=== PATIENT | male | born 1945 | race Caucasian/White ===

== ENCOUNTER 2020-08-15 06:33 | Day surgery (SDC) | payer OTHER ==
[2020-08-09 13:38] VITALS: BMI 25.8
--- OUTSIDE RECORDS SUMMARY | 2020-08-15 06:36 | XMS ---
:1945 Author Organization [facility] Care Team Providers Name Role Phone Devendra Balwinder Unavailable Unavailable Balwinder Ramsay Unavailable Unavailable Balwinder Ramsay Unavailable Unavailable Zain Kerr MD Unavailable Unavailable Juan Carlos Coates MD Unavailable Unavailable Re-disclosure Warning The records that you are about to access may contain information from federally- assisted alcohol or drug abuse programs. If such information is present, then the following federally mandated warning applies: This information has been disclosed to you from records protected by federal confidentiality rules (42 CFR part 2). The federal rules prohibit you from making any further disclosure of this information unless further disclosure is expressly permitted by the written consent of the person to whom it pertains or as otherwise permitted by 42 CFR part 2. A general authorization for the release of medical or other information is NOT sufficient for this purpose. The Federal rules restrict any use of the information to criminally investigate or prosecute any alcohol or drug abuse patient.The records that you are about to access may contain highly sensitive health information, the redisclosure of which is protected by Article 27-F of the [facility] Public Health law. If you continue you may haveaccess to information: Regarding HIV / AIDS; Provided by facilities licensed or operated by the [facility] Office of Mental Health; or Provided by the [facility] Office for People With Developmental Disabilities. If such information is present, then the following [facility] mandated warning applies: This information has been disclosed to you from confidential records which are protected by state law. State law prohibits you from making any further disclosure of this information without the specific written consent of the person to whom it pertains, or as otherwise permitted by law. Any unauthorized further disclosure in violation of state law may result in a fine or half-way sentence or both. A general authorization for the release of medical or other information is NOT sufficient authorization for further disclosure. Allergies and Adverse Reactions Type Description Substance Reaction Status Data Source(s ) Drug allergy No Known Allergies No Known Allergies UNKNOWN [place] [facility] Encounters Encounter Providers Location Date Indications Data Source(s ) Inpatient Attender: Balwinder 01/31/2019 RETORPERITONEAL MASS [place] ZemonAdmitter: 01:22:00 PM Hospital Balwinder Ramsay EDT - 02/02/2019 05:31:00 PM EDT RETORPERITONEAL MASS Inpatient Attender: Juan Carlos Coates 12/01/2018 08:36:00 DVT/GABRIEL SPECTED PE [place] MDAdmitter: Zain PM EST - 12/03/2018 [facility] Cirilo CARROLL 11:01:00 AM EST DVT/SUSPECTED PE Medications Medication Brand Start Product Dose Route Administrative Pharmacy [facility] Indications Reaction Description Data Name Date Form Instructions Instructions Source(s) tramadol Tramad 02/02/ TABLET 50 mg complet Every 6 [place] hydrochlori ol Hcl [address] ains de 50 MG (Ultra 12:00: needed for H ospital Oral Tablet m 50MG 00 AM For Tramadol Tab*) EDT Abdominal Hcl (Ultram 50 Mg Pain 50MG Tab*) Tab 50 Mg Tab rivaroxaban [place] 12/03/ TABLET 20 complet [place] 20 MG Oral xaban 2018 {[facility] ed [place] Tablet (Xarel 12:00: ule} Hospital [Xarelto] to 00 AM Rivaroxaban 20MG*) EST (Xarelto 20 Mg 20MG*) 20 Tablet Mg Tablet, , 20 20 Tab Oral Tab Oral rivaroxaban [place] 12/03/ TABLET 20 complet [place] 20 MG Oral xaban 2018 {[facility] ed [place] Tablet (Xarel 12:00: ule} Hospital [Xarelto] to 00 AM Rivaroxaban 20MG*) EST (Xarelto 20 Mg 20MG*) 20 Tablet Mg Tablet rivaroxaban [place] 12/03/ TABLET 15 mg complet Twi ce A Day White 15 MG Oral xaban 2018 ed [place] Tablet (Xarel 12:00: Hospital [Xarelto] to 00 AM Rivaroxaban 15MG*) EST (Xarelto 15 Mg 15MG*) 15 Tablet Mg Tablet rivaroxaban [place] 12/03/ TABLET 15 mg complet Twi ce A Day White 15 MG Oral xaban 2019 ed [place] Tablet (Xarel 12:00: Hospital [Xarelto] to 00 AM Rivaroxaban 15MG*) EST (Xarelto 15 Mg 15MG*) 15 Tablet Mg Tablet, , 15 15 Mg Oral Mg Oral Finasteride Finast TABLET 1 mg complet Daily White 1 MG Oral eride ed [place] Tablet ([facility] [Propecia] margie Finasteride 1MG (Propecia Tab*) 1MG Tab*) 1 1 Mg Mg Tablet, Tablet 1 Mg Oral , 1 Mg Oral rivaroxaban [place] TABLET 20 complet Daily White 20 MG Oral xaban {Caps ed [place] Tablet (Xarel ule} Hospital [Xarelto] to Rivaroxaban 20MG*) (Xarelto 20 Mg 20MG*) 20 Tablet Mg Tablet Finasteride Finast TABLET 5 mg complet Daily White 5 MG Oral eride ed [place] Tablet ([facility] Finasteride ar*) 5 (Proscar*) Mg Tab 5 Mg Tab Escitalopra Escita TABLET 10 mg complet Daily White m 10 MG lopram ed [place] Oral Tablet Oxalat Hospit al [Lexapro] e Escitalopra (Lexap m Oxalate ro*) (Lexapro*) 10 Mg 10 Mg Tab Tab Tamsulosin Tamsul CAPSULE 0.4 complet At Bed time White hydrochlori osin mg ed [place] de 0.4 MG Hcl Hospital Oral (Floma Capsule x [Flomax] Capsul Tamsulosin e*) Hcl (Flomax 0.4 Mg Capsule*) Cap 0.4 Mg Cap Rosuvastati Rosuva TABLET 10 mg complet Daily White n calcium statin ed [place] 10 MG [facility] Tablet m [Crestor] (Crest Rosuvastati or*) n Calcium 10 Mg (Crestor*) Tab 10 Mg Tab Escitalopra Escita TABLET 10 mg complet Daily White m 10 MG lopram ed [place] Oral Tablet Oxalat Hospit al [Lexapro] e Escitalopra (Lexap m Oxalate ro*) (Lexapro*) 10 Mg 10 Mg Tab Tab Tamsulosin Tamsul CAPSULE 0.4 complet At Bed time White hydrochlori osin mg ed [place] de 0.4 MG Hcl Hospital Oral (Floma Capsule x [Flomax] Capsul Tamsulosin e*) Hcl (Flomax 0.4 Mg Capsule*) Cap 0.4 Mg Cap Rosuvastati Rosuva TABLET 10 mg complet Daily White n calcium statin ed [place] 10 MG Oral [facility] Tablet m [Crestor] (Crest Rosuvastati or*) n Calcium 10 Mg (Crestor*) Tab 10 Mg Tab Finasteride Finast TABLET 1 mg complet Daily White 1 MG Oral eride ed [place] Tablet ([facility] [Propecia] margie Finasteride 1MG (Propecia Tab*) 1MG Tab*) 1 1 Mg Mg Tablet Tablet Insurance Providers Payer name Policy type Policy ID Covered Covered green party's Policy P jennifer / Coverage green party ID relationship to [place] [facility] [place] MEDICARE [id number] SP [id number] 21 1 [facility] [id number] SP [id number] 01 1 MEDICARE [id number] SP [id number] 21 1 BLUE CROSS [id number] PT [id number] OTHER 25 MEDICARE [id number] PT [id number] 21 1 BLUE CROSS [id number] PT [id number] OTHER 25 MEDICARE [id number] PT [id number] 21 1 Problems, Conditions, and Diagnoses Code Display Name Description Problem Type Effective Dates Data Source(s) Z79.899 Other ocean transportation intermediary Z79.899 Diagnosis 01/31/2019 [facility] (current) drug therapy 01:22:00 PM E DT Hospital Z86.711 Personal history of Z86.711 Diagnosis 01/31/2019 [place] pulmonary embolism 01:22:00 PM EDT H ospital Z86.718 Personal history of Z86.718 Diagnosis 01/31/2019 [place] other venous 01:22:00 PM EDT Hospita l thrombosis and embolism 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 Diagnosis 01/31/2019 [place] use of anticoagulants 01:22:00 PM ED T Hospital N40.0 Benign prostatic N40.0 Diagnosis 01/31/[address] [facility] hyperplasia without 01:22:00 PM EDT Hospital lower urinary tract symptoms Z53.31 Laparoscopic surgical Z53.31 Diagnosis 01/31/2019 [facility] [facility] [place] procedure converted to 01:22:00 PM E [facility] open procedure 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.0 Diagnosis 01/31/2019 [facility] [place] (postprocedural) 01:22:00 PM EDT Hos pital (postinfection) C48.0 Malignant neoplasm of C48.0 Diagnosis 01/31/2019 [facility] [place] retroperitoneum 01:22:00 PM EDT Hosp ital C85.90 Non-Hodgkin lymphoma, C85.90 Diagnosis 01/31/2019 [facility] [place] unspecified, 01:22:00 PM EDT Hospita l unspecified site H91.90 Unspecified hearing H91.90 Diagnosis 12/01/2018 [place] loss, unspecified ear 08:36:00 PM [facility] Hospital G47.00 Insomnia, unspecified G47.00 Diagnosis 12/01/2018 [facility] [place] 08:36:00 PM EST Hospital E78.5 Hyperlipidemia, E78.5 Diagnosis 12/01/2018 [facility] unspecified 08:36:00 PM EST Hospital F32.9 Major depressive F32.9 Diagnosis 12/01/[address] [facility] disorder, single 08:36:00 PM EST Hos pital episode, unspecified I26.99 Other pulmonary I26.99 Diagnosis 12/01/2018 [facility] embolism without acute 08:36:00 PM [facility] cor pulmonale I82.4Z2 Acute embolism and I82.4Z2 Diagnosis 12/01/2018 [place] thrombosis of 08:36:00 PM EST Hospit al unspecified deep veins of left distal lower extremity Surgeries/Procedures Procedure Description Date Indications Data Source(s) Laparoscopy, diagnostic Laparoscopy, diagnostic 01/31/2019 [place] 12:00:00 AM Hospital EDT Color Doppler Color Doppler 12/02/2018 [place] echocardiography echocardiography 12:00:00 AM Hospita l EST Computed tomography Computed tomography 12/01/2018 [facility] [place] angiography of chest angiography of chest 12:00:00 AM Hospital without then with without then with EST contrast contrast Portable x-ray of chest Portable x-ray of chest 12/01/2018 [place] 12:00:00 AM Hospital EST Doppler ultrasound of Doppler ultrasound of 12/01/2018 [place] vessels of both lower vessels of both lower 12:00:00 AM Hospital extremities extremities EST EKG (electrocardiogram) EKG (electrocardiogram) 12/01/2018 [place] 12:00:00 AM Hospital EST Results ID Date Data Source [id number] 08/11/2020 10:55:00 AM EDT [facility] Name Value Range Interpretation Description Data Sup porting Code Source(s) Document(s ) SARS [facility] coronavirus 2 RNA This lab was ordered by SALLY garnica [facility] and reported by [facility]. ID Date Data Source [id number] 02/02/2019 09:33:00 AM EDT [facility] Value Range Interpretation Description Data Sup porting Code Source(s) Document(s ) Aspartate 38 U/L 10-48 AST [place] aminotransferase [place] [Enzymatic Hospital activity/volume] in Serum or Plasma ID Date Data Source [id number] 02/02/2019 09:33:00 AM EDT [facility] Value Range Interpretation Description Data Sup porting Code Source(s) Document(s ) Alanine 20 U/L 10-40 ALANINE [facility] aminotransferase TRANSFERASE [place] [Enzymatic Hospital activity/volume] in Serum or Plasma ID Date Data Source [id number] 02/02/2019 09:33:00 AM EDT [facility] Value Range Interpretation Description Data Sup porting Code Source(s) Document(s ) Alkaline 87 U/L 41-147 ALKALINE [place] phosphatase PHOSPHATASE Hospital [Enzymatic activity/volum e] in Serum or Plasma ID Date Data Source [id number] 02/02/2019 09:33:00 AM EDT [facility] Value Range Interpretation Description Data Sup porting Code Source(s) Document(s ) Bilirubin. 0.6 mg/dL 0.3-1.2 TOTAL [place] total BILIRUBIN Hospital [Mass/volu me] in Serum or Plasma ID Date Data Source [id number] [facility] Value Range Interpretation Description Data Sup porting Code Source(s) Document(s ) Albumin/Gl 1.2 1.0-2.1 ALBUMIN/GLOBULI [place] obulin N RATIO Hospital [Mass Ratio] in Serum or Plasma ID Date Data Source [id number] 02/02/2019 09:33:00 AM EDT [facility] Name Value Range Interpretation Description Data Sup porting Code Source(s) Document(s ) Albumin 3.5 g/dL 3.4-4.8 ALBUMIN [place] [Mass/volum Hospital e] in Serum or Plasma ID Date Data Source [id number] 02/02/2019 09:33:00 AM [facility] Value Range Interpretation Description Data Sup porting Code Source(s) Document(s ) Protein 6.3 g/dL 5.7-8.2 TOTAL PROTEIN [place] [Mass/volum Hospital e] in Serum or Plasma ID Date Data Source [id number] 02/02/2019 09:33:00 AM [facility] Value Range Interpretation Description Data Sup porting Code Source(s) Document(s ) Calcium 8.3 mg/dL 8.3-10.6 CALCIUM [place] [Mass/volum Hospital e] in Serum or Plasma ID Date Data Source [id number] 02/02/2019 09:33:00 AM [facility] Name Value Range Interpretation Description Data Sup porting Code Source(s) Document(s ) Urea 18.9 6.0-20.0 BUN/CREATININE [place] nitrogen/C RATIO Hospital reatinine [Mass Ratio] in Serum or Plasma ID Date Data Source [id number] 02/02/2019 09:33:00 AM EDT [facility] Name Value Range Interpretation Description Data Sup porting Code Source(s) Document(s ) Creatinine 1.1 0.9-1.3 CREATININE [place] [Mass/volume] mg/dL Hospital in Serum or Plasma ID Date Data Source [id number] 02/02/2019 09:33:00 AM EDT [facility] Name Value Range Interpretation Description Data Sup porting Code Source(s) Document(s ) Urea 21 mg/dL 6-20 Above high normal BLOOD UREA [facility] nitrogen NITROGEN Hospital [Mass/volume ] in Serum or Plasma ID Date Data Source [id number] 02/02/2019 [facility] Value Range Interpretation Code Description Data Danielle rce(s) Supporting Document(s ) Anion gap in 13 6-18 ANION GAP [place] Serum or [facility] Plasma ID Date Data Source [id number] 02/02/2019 09:33:00 AM [facility] Name Value Range Interpretation Description Data Sup porting Code Source(s) Document(s ) Carbon 24 mmol/L 23-31 CARBON DIOXIDE [place] dioxide, Hospital total [Moles/vol ume] in Serum or Plasma ID Date Data Source [id number] 02/02/2019 09:33:00 AM [facility] Name Value Range Interpretation Description Data Sup porting Code Source(s) Document(s ) Chloride 107 98-107 CHLORIDE [place] [Moles/volum mmol/L Hospital e] in Serum or Plasma ID Date Data Source [id number] 02/02/2019 [facility] Value Range Interpretation Description Data Sup porting Code Source(s) Document(s ) Potassium 3.9 3.5-5.3 POTASSIUM [place] [Moles/volume mmol/L Hospital ] in Serum or Plasma ID Date Data Source [id number] 02/02/2019 09:33:00 AM EDT [facility] Name Value Range Interpretation Description Data Sup porting Code Source(s) Document(s ) Sodium 140 136-145 SODIUM [place] [Moles/vol mmol/L Hospital ume] in Serum or Plasma ID Date Data Source [id number] 02/02/2019 09:33:00 AM EDT [facility] Name Value Range Interpretation Description Data Sup porting Code Source(s) Document(s ) Glucose 114 mg/dL 74-106 Above high normal GLUCOSE [place] [Mass/volum Hospital e] in Serum or Plasma ID Date Data Source [id number] 02/02/2019 09:33:00 AM EDT [facility] Value Range Interpretation Description Data Sup porting Code Source(s) Document(s ) Differential AUTOMATED DIFF TYPE [place] cell count [facility] method - Blood ID Date Data Source [id number] 02/02/2019 09:33:00 AM EDT [facility] Value Range Interpretation Description Data Sup porting Code Source(s) Document(s ) Immature 0.03 0-0.3 IMM GRANS [place] granulocytes 10*3/uL (AUTO DIFF#) Hospital [#/volume] in Blood by Automated count ID Date Data Source [id number] 02/02/2019 09:33:00 AM EDT [facility] Name Value Range Interpretation Description Data Sup porting Code Source(s) Document(s ) Basophils 0.04 0.0-0.1 BASOPHILS [place] [#/volume] 10*3/uL (AUTO DIFF #) Hospital in Blood by Automated count ID Date Data Source [id number] 02/02/2019 09:33:00 AM EDT [facility] Name Value Range Interpretation Description Data Sup porting Code Source(s) Document(s ) Eosinophils 0.04 0.0-0.6 EOSINOPHILS [place] [#/volume] in 10*3/uL (AUTO DIFF #) [place] Blood by [facility] Automated count ID Date Data Source [id number] 02/02/2019 09:33:00 AM [facility] Value Range Interpretation Description Data Sup porting Code Source(s) Document(s ) Monocytes 0.90 0.0-1.2 MONOCYTES [place] [#/volume] 10*3/uL (AUTO DIFF #) Hospital in Blood by Automated count ID Date Data Source [id number] 02/02/2019 09:33:00 AM [facility] Value Range Interpretation Description Data Sup porting Code Source(s) Document(s ) Lymphocytes 0.88 1.2-3.5 Below low normal LYMPHOCYTES [place] [#/volume] in 10*3/uL (AUTO DIFF #) [place] Blood by [facility] Automated count ID Date Data Source [id number] 02/02/2019 09:33:00 AM [facility] Value Range Interpretation Description Data Sup porting Code Source(s) Document(s ) Neutrophils 7.94 1.5-6.6 Above high normal NEUTROPHILS [facility] [#/volume] in 10*3/uL (AUTO DIFF #) [place] Blood by [facility] Automated count ID Date Data Source [id number] 02/02/2019 09:33:00 AM [facility] Value Range Interpretation Description Data Sup porting Code Source(s) Document(s ) Nucleated 0.0 % 0-0.2 NUCLEATED RBCS [place] erythrocytes/1 (AUTO DIFF%) Hospital 00 leukocytes [Ratio] in Blood by Automated count ID Date Data Source [id number] 02/02/2019 09:33:00 AM [facility] Value Range Interpretation Description Data Sup porting Code Source(s) Document(s ) Immature 0.3 % 0-0.5 IMM GRANS (AUTO [place] granulocytes/1 DIFF%) Hospital 00 leukocytes in Blood by Automated count ID Date Data Source [id number] 02/02/2019 09:33:00 AM [facility] Name Value Range Interpretation Description Data Sup porting Code Source(s) Document(s ) Basophils/100 0.4 % 0-1.0 BASOPHILS (AUTO [facility] [facility] leukocytes in DIFF %) Hospital Blood by Automated count ID Date Data Source [id number] 02/02/2019 09:33:00 AM [facility] Name Value Range Interpretation Description Data Sup porting Code Source(s) Document(s ) Eosinophils/10 0.4 % 0-6.0 EOSINOPHILS [place] 0 leukocytes (AUTO DIFF %) Hospital in Blood by Automated count ID Date Data Source [id number] 02/02/2019 09:33:00 AM [facility] Name Value Range Interpretation Description Data Sup porting Code Source(s) Document(s ) Monocytes/100 9.2 % 4.0-12.0 MONOCYTES [place] leukocytes in (AUTO DIFF %) Hospital Blood by Automated count ID Date Data Source [id number] 02/02/2019 09:33:00 AM [facility] Name Value Range Interpretation Description Data Sup porting Code Source(s) Document(s ) Lymphocytes/10 9.0 % 20.0-48. Below low normal LYMPHOCYTES [place] 0 leukocytes 0 (AUTO DIFF %) Hospital in Blood by Automated count ID Date Data Source [id number] 02/02/2019 09:33:00 AM [facility] Name Value Range Interpretation Description Data Sup porting Code Source(s) Document(s ) Neutrophils/1 80.7 % 40.0-75. Above high normal NEUTROPHILS [place] 00 leukocytes 0 (AUTO DIFF %) Hospital in Blood by Automated count ID Date Data Source [id number] 02/02/2019 09:33:00 AM [facility] Name Value Range Interpretation Description Data Sup porting Code Source(s) Document(s ) Platelet 10.7 fL 9.6-12.8 MEAN PLATELET [place] mean volume VOLUME Hospital [Entitic volume] in Blood by Automated count ID Date Data Source [id number] 02/02/2019 09:33:00 AM [facility] Value Range Interpretation Description Data Sup porting Code Source(s) Document(s ) Platelets 201 150-400 PLATELET COUNT [place] [#/volume] 10*3/uL Hospital in Blood by Automated count ID Date Data Source [id number] 02/02/2019 09:33:00 AM [facility] Value Range Interpretation Description Data Sup porting Code Source(s) Document(s ) Erythrocyte 13.9 % 11.5-14. RED CELL [place] distribution 5 DISTRIBUTION [place] width [Ratio] WIDTH Hospital by Automated count ID Date Data Source [id number] 02/02/2019 09:33:00 AM [facility] Value Range Interpretation Description Data Sup porting Code Source(s) Document(s ) Erythrocyte mean 32.1 31.0-36. MEAN [place] corpuscular g/dL 0 CORPUSCULAR [place] hemoglobin HGB CONCEN Hospital concentration [Mass/volume] by Automated count ID Date Data Source [id number] 02/02/2019 09:33:00 AM [facility] Value Range Interpretation Description Data Sup porting Code Source(s) Document(s ) Erythrocyte 27.0 pg 27.0-34. MEAN [facility] mean 0 CORPUSCULAR [place] corpuscular HEMOGLOBIN [facility] hemoglobin [Entitic mass] by Automated count ID Date Data Source [id number] 02/02/2019 09:33:00 AM [facility] Value Range Interpretation Description Data Sup porting Code Source(s) Document(s ) Erythrocyte 84.0 fL 80.0-96. MEAN [facility] mean 0 CORPUSCULAR [place] corpuscular VOLUME Hospital volume [Entitic volume] by Automated count ID Date Data Source [id number] 02/02/2019 09:33:00 AM [facility] Name Value Range Interpretation Description Data Sup porting Code Source(s) Document(s ) Hematocrit 29.9 % 42.0-50.0 Below low normal HEMATOCRIT [place] [Volume Hospital Fraction] of Blood by Automated count ID Date Data Source [id number] 02/02/2019 09:33:00 AM [facility] Name Value Range Interpretation Description Data Sup porting Code Source(s) Document(s ) Hemoglobin 9.6 g/dL 13.6-17. Below low normal HEMOGLOBIN [place] [Mass/volume] 0 Hospital in Blood ID Date Data Source [id number] 02/02/2019 09:33:00 AM [facility] Name Value Range Interpretation Description Data Sup porting Code Source(s) Document(s ) Erythrocytes 3.56 4.50-5.9 Below low normal RED BLOOD [facility] [#/volume] in 10*6/uL 0 CELL COUNT [place] Blood by Hospital Automated count ID Date Data Source [id number] 02/02/2019 09:33:00 AM [facility] Name Value Range Interpretation Description Data Sup porting Code Source(s) Document(s ) Leukocytes 9.8 4.0-10.0 WHITE BLOOD [place] [#/volume] in 10*3/uL CELL COUNT [facility] Blood by Automated count ID Date Data Source [id number] 01/31/2019 01:27:00 PM [facility] Senior International Tax Manager: ROWENA NASH RN Name Value Range Interpretation Description Data Sup porting Code Source(s) Document(s ) Glucose 156 74-106 Above high normal METER GLUCOSE [facility] [place] [Mass/volume] mg/dL Hospital in Capillary blood by Glucometer ID Date Data Source [id number] 12/02/2018 06:56:00 AM [facility] Name Value Range Interpretation Description Data Sup porting Code Source(s) Document(s ) Calcium 8.7 mg/dL 8.3-10.6 CALCIUM [place] [Mass/volum Hospital e] in Serum or Plasma ID Date Data Source [id number] 12/02/2018 06:56:00 AM [facility] Name Value Range Interpretation Description Data Sup porting Code Source(s) Document(s ) Urea 30.3 6.0-20.0 Above high normal BUN/CREATININE [place] nitrogen/C [facility] reatinine [Mass Ratio] in Serum or Plasma ID Date Data Source [id number] 12/02/2018 06:56:00 AM [facility] Value Range Interpretation Description Data Sup porting Code Source(s) Document(s ) Creatinine 0.8 0.9-1.3 Below low normal CREATININE [place] [facility] [Mass/volume] mg/dL Hospital in Serum or Plasma ID Date Data Source [id number] 12/02/2018 06:56:00 AM [facility] Value Range Interpretation Description Data Sup porting Code Source(s) Document(s ) Urea 23 mg/dL 6-20 Above high normal BLOOD UREA [facility] s nitrogen NITROGEN Hospital [Mass/volume ] in Serum or Plasma ID Date Data Source [id number] 12/02/2018 06:56:00 AM [facility] Value Range Interpretation Code Description Data Danielle rce(s) Supporting Document(s ) Anion gap in 13 6-18 ANION GAP [place] Serum or [facility] Plasma ID Date Data Source [id number] 12/02/2018 06:56:00 AM [facility] Value Range Interpretation Description Data Sup porting Code Source(s) Document(s ) Carbon 25 mmol/L 23-31 CARBON DIOXIDE [place] dioxide, Hospital total [Moles/vol ume] in Serum or Plasma ID Date Data Source [id number] 12/02/2018 06:56:00 AM EST [place] [facility] Name Value Range Interpretation Description Data Sup porting Code Source(s) Document(s ) Chloride 105 98-107 CHLORIDE [place] [Moles/volum mmol/L Hospital e] in Serum or Plasma ID Date Data Source [id number] 12/02/2018 06:56:00 AM EST [place] [facility] Name Value Range Interpretation Description Data Sup porting Code Source(s) Document(s ) Potassium 4.0 3.5-5.3 POTASSIUM [place] [Moles/volume mmol/L Hospital ] in Serum or Plasma ID Date Data Source [id number] 12/02/2018 06:56:00 AM EST [place] [facility] Name Value Range Interpretation Description Data Sup porting Code Source(s) Document(s ) Sodium 139 136-145 SODIUM [place] [Moles/vol mmol/L Hospital ume] in Serum or Plasma ID Date Data Source [id number] 12/02/2018 06:56:00 AM EST [place] [facility] Name Value Range Interpretation Description Data Sup porting Code Source(s) Document(s ) Glucose 94 mg/dL 74-106 GLUCOSE [place] [Mass/volum Hospital e] in Serum or Plasma ID Date Data Source [id number] 12/02/2018 06:56:00 AM EST [place] [facility] Name Value Range Interpretation Code Description Data Danielle rce(s) Supporting Document(s ) 0.0 % 0-0.2 NUCLEATED RBCS [place] (AUTO DIFF%)DIS Hospital ID Date Data Source [id number] 12/02/2018 06:56:00 AM EST [place] [facility] Name Value Range Interpretation Description Data Sup porting Code Source(s) Document(s ) Differential AUTOMATED DIFF TYPE [place] cell count Hospital method - Blood ID Date Data Source [id number] 12/02/2018 06:56:00 AM [facility] Name Value Range Interpretation Description Data Sup porting Code Source(s) Document(s ) Immature 0.02 0-0.3 IMM GRANS [place] granulocytes 10*3/uL (AUTO DIFF#) Hospital [#/volume] in Blood by Automated count ID Date Data Source [id number] 12/02/2018 06:56:00 AM [facility] Name Value Range Interpretation Description Data Sup porting Code Source(s) Document(s ) Basophils 0.08 0.0-0.1 BASOPHILS [place] [#/volume] 10*3/uL (AUTO DIFF #) Hospital in Blood by Automated count ID Date Data Source [id number] 12/02/2018 06:56:00 AM [facility] Name Value Range Interpretation Description Data Sup porting Code Source(s) Document(s ) Eosinophils 0.38 0.0-0.6 EOSINOPHILS [place] [#/volume] in 10*3/uL (AUTO DIFF #) [place] Blood by [facility] Automated count ID Date Data Source [id number] 12/02/2018 06:56:00 AM [facility] Name Value Range Interpretation Description Data Sup porting Code Source(s) Document(s ) Monocytes 0.97 0.0-1.2 MONOCYTES [place] [#/volume] 10*3/uL (AUTO DIFF #) Hospital in Blood by Automated count ID Date Data Source [id number] 12/02/2018 06:56:00 AM [facility] Name Value Range Interpretation Description Data Sup porting Code Source(s) Document(s ) Lymphocytes 1.54 1.2-3.5 LYMPHOCYTES [facility] [#/volume] in 10*3/uL (AUTO DIFF #) [place] Blood by Hospital Automated count ID Date Data Source [id number] 12/02/2018 06:56:00 AM [facility] Name Value Range Interpretation Description Data Sup porting Code Source(s) Document(s ) Neutrophils 6.03 1.5-6.6 NEUTROPHILS [facility] [#/volume] in 10*3/uL (AUTO DIFF #) [place] Blood by Hospital Automated count ID Date Data Source [id number] 12/02/2018 06:56:00 AM [facility] Value Range Interpretation Description Data Sup porting Code Source(s) Document(s ) Nucleated 0.0 % 0-0.2 NUCLEATED RBCS [place] erythrocytes/1 (AUTO DIFF%) Hospital 00 leukocytes [Ratio] in Blood by Automated count ID Date Data Source [id number] 12/02/2018 06:56:00 AM [facility] Value Range Interpretation Description Data Sup porting Code Source(s) Document(s ) Immature 0.2 % 0-0.5 IMM GRANS (AUTO [place] granulocytes/1 DIFF%) [facility] 00 leukocytes in Blood by Automated count ID Date Data Source [id number] 12/02/2018 06:56:00 AM [facility] Value Range Interpretation Description Data Sup porting Code Source(s) Document(s ) Basophils/100 0.9 % 0-1.0 BASOPHILS (AUTO [place] leukocytes in DIFF %) Hospital Blood by Automated count ID Date Data Source [id number] 12/02/2018 06:56:00 AM [facility] Value Range Interpretation Description Data Sup porting Code Source(s) Document(s ) Eosinophils/10 4.2 % 0-6.0 EOSINOPHILS [place] 0 leukocytes (AUTO DIFF %) Hospital in Blood by Automated count ID Date Data Source [id number] 12/02/2018 06:56:00 AM EST [place] [facility] Name Value Range Interpretation Description Data Sup porting Code Source(s) Document(s ) Monocytes/100 10.8 % 4.0-12.0 MONOCYTES [place] leukocytes in (AUTO DIFF %) Hospital Blood by Automated count ID Date Data Source [id number] 12/02/2018 06:56:00 AM [facility] Name Value Range Interpretation Description Data Sup porting Code Source(s) Document(s ) Lymphocytes/1 17.1 % 20.0-48. Below low normal LYMPHOCYTES [place] 00 leukocytes 0 (AUTO DIFF %) Hospital in Blood by Automated count ID Date Data Source [id number] 12/02/2018 06:56:00 AM [facility] Name Value Range Interpretation Description Data Sup porting Code Source(s) Document(s ) Neutrophils/1 66.8 % 40.0-75. NEUTROPHILS [place] 00 leukocytes 0 (AUTO DIFF %) Hospital in Blood by Automated count ID Date Data Source [id number] 12/02/2018 06:56:00 AM [facility] Name Value Range Interpretation Description Data Sup porting Code Source(s) Document(s ) Platelet 10.3 fL 9.6-12.8 MEAN PLATELET [place] mean volume VOLUME Hospital [Entitic volume] in Blood by Automated count ID Date Data Source [id number] 12/02/2018 06:56:00 AM [facility] Name Value Range Interpretation Description Data Sup porting Code Source(s) Document(s ) Platelets 173 150-400 PLATELET COUNT [place] [#/volume] 10*3/uL Hospital in Blood by Automated count ID Date Data Source [id number] 12/02/2018 06:56:00 AM [facility] Name Value Range Interpretation Description Data Sup porting Code Source(s) Document(s ) Erythrocyte 14.6 % 11.5-14. Above high normal RED CELL [place] distribution 5 DISTRIBUTION [place] width [Ratio] WIDTH Hospital by Automated count ID Date Data Source [id number] 12/02/2018 06:56:00 AM [facility] Name Value Range Interpretation Description Data Sup porting Code Source(s) Document(s ) Erythrocyte mean 32.2 31.0-36. MEAN [place] corpuscular g/dL 0 CORPUSCULAR [place] hemoglobin HGB CONCEN Hospital concentration [Mass/volume] by Automated count ID Date Data Source [id number] 12/02/2018 06:56:00 AM [facility] Name Value Range Interpretation Description Data Sup porting Code Source(s) Document(s ) Erythrocyte 27.4 pg 27.0-34. MEAN [place] mean 0 CORPUSCULAR [place] corpuscular HEMOGLOBIN Hospital hemoglobin [Entitic mass] by Automated count ID Date Data Source [id number] 12/02/2018 06:56:00 AM [facility] Value Range Interpretation Description Data Sup porting Code Source(s) Document(s ) Erythrocyte 85.2 fL 80.0-96. MEAN [place] mean 0 CORPUSCULAR [place] corpuscular VOLUME Hospital volume [Entitic volume] by Automated count ID Date Data Source [id number] 12/02/2018 06:56:00 AM [facility] Value Range Interpretation Description Data Sup porting Code Source(s) Document(s ) Hematocrit 35.1 % 42.0-50.0 Below low normal HEMATOCRIT [place] [Volume Hospital Fraction] of Blood by Automated count ID Date Data Source [id number] 12/02/2018 06:56:00 AM [facility] Value Range Interpretation Description Data Sup porting Code Source(s) Document(s ) Hemoglobin 11.3 13.6-17. Below low normal HEMOGLOBIN [place] [Mass/volume] g/dL 0 Hospital in Blood ID Date Data Source [id number] 12/02/2018 06:56:00 AM [facility] Name Value Range Interpretation Description Data Sup porting Code Source(s) Document(s ) Erythrocytes 4.12 4.50-5.9 Below low normal RED BLOOD [place] [#/volume] in 10*6/uL 0 CELL COUNT [place] Blood by [facility] Automated count ID Date Data Source [id number] 12/02/2018 06:56:00 AM [facility] Value Range Interpretation Description Data Sup porting Code Source(s) Document(s ) Leukocytes 9.0 4.0-10.0 WHITE BLOOD [place] [#/volume] in 10*3/uL CELL COUNT [facility] Blood by Automated count ID Date Data Source [id number] 12/01/2018 09:42:00 PM [facility] Value Range Interpretation Description Data Sup porting Code Source(s) Document(s ) Leukocyte NEGATIVE NEG URINE [place] esterase LEUKOCYTES Hospital [Presence] in Urine by Test strip ID Date Data Source [id number] 12/01/2018 09:42:00 PM [facility] Value Range Interpretation Description Data Sup porting Code Source(s) Document(s ) Nitrite NEGATIVE NEG URINE NITRITES [place] [Presence] Hospital in Urine by Test strip ID Date Data Source [id number] 12/01/2018 09:42:00 PM [facility] Value Range Interpretation Description Data Sup porting Code Source(s) Document(s ) Erythrocytes NEGATIVE NEG URINE BLOOD [place] [#/volume] in Hospital Urine by Test strip ID Date Data Source [id number] 12/01/2018 09:42:00 PM [facility] Value Range Interpretation Description Data Sup porting Code Source(s) Document(s ) Bilirubin NEGATIVE NEG URINE BILIRUBIN [place] .total Hospital [Presence ] in Urine by Test strip ID Date Data Source [id number] 12/01/2018 09:42:00 PM [facility] Value Range Interpretation Description Data Sup porting Code Source(s) Document(s ) Urobilinogen 0.2 0.2-1.0 URINE [facility] [Units/volume] mg/dL UROBILINOGEN [place] in Urine by [facility] Test strip ID Date Data Source [id number] 12/01/2018 09:42:00 PM [facility] Value Range Interpretation Description Data Sup porting Code Source(s) Document(s ) Ketones NEGATIVE NEG URINE KETONES [place] [Mass/volum Hospital e] in Urine by Test strip ID Date Data Source [id number] 12/01/2018 09:42:00 PM [facility] Value Range Interpretation Description Data Sup porting Code Source(s) Document(s ) Glucose NEGATIVE NEG URINE GLUCOSE [place] [[facility] e] in Urine by Test strip ID Date Data Source [id number] 12/01/2018 09:42:00 PM [facility] Value Range Interpretation Description Data Sup porting Code Source(s) Document(s ) Protein NEGATIVE NEG URINE PROTEIN [place] [Presence] Hospital in Urine by Test strip ID Date Data Source [id number] 12/01/2018 09:42:00 PM [facility] Value Range Interpretation Code Description Data Danielle rce(s) Supporting Document(s ) pH of 6.0 5.0-8.0 URINE PH [place] Urine by [facility] Test strip ID Date Data Source [id number] 12/01/2018 09:42:00 PM [facility] Value Range Interpretation Description Data Sup porting Code Source(s) Document(s ) Specific 1.068 1.003-1.0 Above high normal URINE SPECIFIC [place] gravity of 35 GRAVITY Hospital Urine by Test strip ID Date Data Source [id number] 12/01/2018 09:42:00 PM [facility] Name Value Range Interpretation Description Data Sup porting Code Source(s) Document(s ) Clarity in Urine CLEAR URINE CLARITY [facility] by Refractometry [facility] automated ID Date Data Source [id number] 12/01/2018 09:42:00 PM [facility] Name Value Range Interpretation Code Description Data Danielle rce(s) Supporting Document(s ) Color of YELLOW URINE COLOR [place] Urine Hospital ID Date Data Source [id number] 12/01/2018 05:42:00 PM [facility] Name Value Range Interpretation Description Data Sup porting Code Source(s) Document(s ) Natriuretic 17.4 0.0-100. B-TYPE [facility] peptide B pg/mL 0 NATRIURETIC [place] [Mass/volume] PEPTIDE Hospital in Serum or Plasma ID Date Data Source [id number] 12/01/2018 05:42:00 PM [facility] TEST PERFORMED BY [employer] ULTRA SENSITIVE [facility] CHEMILUMINESCENCE METHOD. Name Value Range Interpretation Description Data Sup porting Code Source(s) Document(s ) Troponin 0.08 0.00-0.59 TROPONIN [place] I.cardiac ng/mL Hospital [Mass/volume ] in Serum or Plasma ID Date Data Source [id number] 12/01/2018 05:42:00 PM [facility] Name Value Range Interpretation Description Data Sup porting Code Source(s) Document(s ) Aspartate 27 U/L 10-48 AST [place] aminotransferase [place] [Enzymatic Hospital activity/volume] in Serum or Plasma ID Date Data Source [id number] 12/01/2018 05:42:00 PM [facility] Name Value Range Interpretation Description Data Sup porting Code Source(s) Document(s ) Alanine 20 U/L 10-40 ALANINE [facility] aminotransferase TRANSFERASE [place] [Enzymatic Hospital activity/volume] in Serum or Plasma ID Date Data Source [id number] 12/01/2018 05:42:00 PM [facility] Hospital Name Value Range Interpretation Description Data Sup porting Code Source(s) Document(s ) Alkaline 106 U/L 41-147 ALKALINE [place] phosphatase PHOSPHATASE Hospital [Enzymatic activity/volum e] in Serum or Plasma ID Date Data Source [id number] 12/01/2018 05:42:00 PM EST [place] [facility] Name Value Range Interpretation Description Data Sup porting Code Source(s) Document(s ) Bilirubin. 0.2 mg/dL <0.2 Above high normal DIRECT [facility] direct BILIRUBIN Hospital [Mass/volu me] in Serum or Plasma ID Date Data Source [id number] 12/01/2018 05:42:00 PM [facility] Value Range Interpretation Description Data Sup porting Code Source(s) Document(s ) Bilirubin. 0.5 mg/dL 0.3-1.2 TOTAL [place] total BILIRUBIN Hospital [Mass/volu me] in Serum or Plasma ID Date Data Source [id number] 12/01/2018 05:42:00 PM [facility] Value Range Interpretation Description Data Sup porting Code Source(s) Document(s ) Albumin/Gl 1.4 1.0-2.1 ALBUMIN/GLOBULI [place] obulin N RATIO Hospital [Mass Ratio] in Serum or Plasma ID Date Data Source [id number] 12/01/2018 05:42:00 PM [facility] Hospital Name Value Range Interpretation Description Data Sup porting Code Source(s) Document(s ) Albumin 4.3 g/dL 3.4-4.8 ALBUMIN [place] [Mass/volum Hospital e] in Serum or Plasma ID Date Data Source [id number] 12/01/2018 05:42:00 PM [facility] Name Value Range Interpretation Description Data Sup porting Code Source(s) Document(s ) Protein 7.3 g/dL 5.7-8.2 TOTAL PROTEIN [place] [[facility] Hospital e] in Serum or Plasma ID Date Data Source [id number] 12/01/2018 05:42:00 PM [facility] THERAPEUTIC RANGES: UNFRACTIONATED HEPARIN THERAPY: 60-90 SE CONDS ARGATROBAN THERAPY: 49-99 SECONDS Name Value Range Interpretation Description Data Sup porting Code Source(s) Document(s ) aPTT in 28.2 s 28.6-39. Below low normal ACT. PART. [place] Platelet poor 4 THROMBOPLASTIN [place] plasma by TIME [facility] Coagulation assay ID Date Data Source [id number] 12/01/2018 05:42:00 PM [facility] THERAPEUTIC RANGE FOR STANDARD ORAL ANTICOAGULANT THERAPY: 2.0-3.0 THERAPEUTIC RANGE FOR HIGH DOSE ORAL ANTICOAGULANT THERAPY (MECHANICAL HEART VALVE REPLACEMENT): 2.5-3.5 Name Value Range Interpretation Description Data Sup porting Code Source(s) Document(s ) INR in 1.1 INTERNATIONAL [place] Platelet poor NORMALIZED RATIO [facility] plasma by Coagulation assay ID Date Data Source [id number] 12/01/2018 05:42:00 PM [facility] Name Value Range Interpretation Description Data Sup porting Code Source(s) Document(s ) PT panel - 12.8 s 9.4-13.0 PROTHROMBIN [place] Platelet poor TIME [facility] plasma by Coagulation assay Procedure Social History Code Duration Value Status Description Data Source(s ) Smoking Unknown if ever completed Unknown if ever [facility] [place] smoked smoked Hospital Smoking Never smoked completed Never smoked tobacco Wh ite [place] tobacco (finding) (finding) Hospita l Patient Treatment Plan of Care Planned Activity Planned Date Details Description Data Source (s) tramadol hydrochloride 50 02/02/2019 12:00:00 [facility] MG Oral Tablet AM EDT rivaroxaban 20 MG Oral 12/03/2018 12:00:00 [facility] Tablet [Xarelto] AM EST rivaroxaban 15 MG Oral 12/03/2018 12:00:00 [facility] Tablet [Xarelto] AM EST rivaroxaban 20 MG Oral 12/03/2018 12:00:00 [facility] Tablet [Xarelto] AM EST rivaroxaban 15 MG Oral 12/03/2018 12:00:00 [facility] Tablet [Xarelto] AM EST Finasteride 1 MG Oral [facility] Tablet [Propecia] Tamsulosin hydrochloride [facility] 0.4 MG Oral Capsule [Flomax] Rosuvastatin calcium 10 [facility] MG Oral Tablet [Crestor] rivaroxaban 20 MG Oral [facility] Tablet [Xarelto] Finasteride 5 MG Oral [facility] Tablet Escitalopram 10 MG Oral [facility] Tablet [Lexapro] Tamsulosin hydrochloride [facility] 0.4 MG Oral Capsule [Flomax] Rosuvastatin calcium 10 [facility] MG Oral Tablet [Crestor] Finasteride 1 MG Oral [facility] Tablet [Propecia] Escitalopram 10 MG Oral [facility] Tablet [Lexapro]
[2020-08-15] MEDS: CYCLOPENTOLATE 2% OPHTH SOLN 2 ML BOTTLE ONE ×3 (07:10→07:20)
[2020-08-15] MEDS: PHENYLEPHRINE 2.5% OPHTH SOLN 15 ML BOTTLE ONE ×3 (07:10→07:20)
[2020-08-15] MEDS: CIPROFLOXACIN 0.3% EYE DROPS 5 ML BOTTLE ONE ×3 (07:10→07:20)
[2020-08-15] MEDS: TROPICAMIDE 1% OPHTH SOLN 15 ML BOTTLE ONE ×3 (07:10→07:20)
[2020-08-15] MEDS ORDERED: TETRACAINE 0.5% OPHTH SOLN 2 ML BOTTLE ONE (07:11)
[2020-08-15] MEDS ORDERED: LIDOCAINE 1% P/F 10 MG/ML VIAL ONE (07:11)
[2020-08-15] MEDS ORDERED: NEO/POLYMYX B SULF/DEXAMETH OPHTHALMIC 5ML BOTTLE ONE (07:12)
[2020-08-15] MEDS ORDERED: BSS (NA/CA/MG/K) BALANCED SALT SOLUTION OPHTH SOLN 15 ML BOTTLE ONE (07:12)
[2020-08-15] MEDS ORDERED: CARBACHOL 0.01% INTRA-OCULAR 1.5 ML VIAL ONE (07:12)
[2020-08-15] MEDS ORDERED: EPINEPHrine/PF 1 MG/1 ML (1:1,000) AMPULE ONE (07:13)
[2020-08-15] MEDS ORDERED: MIDAZOLAM HCL 2 MG/2 ML SINGLE DOSE VIAL ONE (07:41)
[2020-08-15] MEDS ORDERED: PHENYLEPHRINE/KETOROLAC 4 ML VIAL IO ONE (08:02)
[2020-08-15 09:37] VITALS: BP 122/72; PULSE 58; TEMP 97.9
--- NOTE | 2020-08-15 11:23 | OP ---
DATE OF OPERATION: 08/15/2020 OPERATIVE PROCEDURE: Lysis of Posterior Iris Lens Synechia and Lens Phacoemulsification with Posterior Chamber Intraocular Lens Placement, Right Eye. PREOPERATIVE DIAGNOSIS: Visually Significant Cataract and Posterior Synechia of Right Eye. 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 SURGEON: Merrill Brewster M.D. ANESTHESIA: MAC PROCEDURE: The patient was brought to the operating room and placed under monitored anesthesia care by Anesthesia. A drop of Tetracaine was then placed over the right eye. The patient was then prepped and draped in the usual sterile manner. A speculum was then placed over the right eye. The eye was then well irrigated with copious amounts of BSS (balanced salt solution). The operating microscope was then moved into position. A paracentesis was performed using a 15 degree blade. At this point 0.5 mL of 1% preservative-free lidocaine was injected into the anterior chamber. Amvisc plus was then injected into the anterior chamber. A clear corneal incision was then formed using a 2.2 mm keratome. A cyclodialysis spatula was then used to break the posterior synechia. Two Carticipateen iris hooks were then used to stretch the iris. More Amvisc plus was then injected into the anterior chamber. A capsulorrhexis was then performed in a continuous circular fashion beginning with a cystotome and completed with an Utratas forceps. Hydrodissection was then performed using BSS on a cannula. The phaco probe was then introduced through the corneal wound and the cataract was removed using the phaco chop technique. Approximately 3 seconds of absolute phaco time was used. The remaining cortex was then removed using irrigation and aspiration with an I/A probe. The capsule was then filled with regular Amvisc and the capsule was noted to be intact. A previously selected foldable posterior chamber intraocular lens was then injected into the capsule through the corneal wound using a lens injector. It was then dialed into position using a [place] hook. The Amvisc was then removed using irrigation and aspiration. Miostat was then injected through the paracentesis to constrict the pupil. The paracentesis and corneal wound were then hydrated and noted to be water tight. A drop of Maxitrol was then placed over the eye. T he speculum was removed and clear shield was taped over the eye. The patient tolerated the procedure well and there were no surgical complications. The patient was asked to follow up in my office the next day. MERRILL BREWSTER M.D. [id number]
== END 2020-08-15 09:36 | disposition home or self-care (01) ==
LOC: FASU 06:33
PROVIDERS: ATTEND Ophthalmology
PROC: 08RJ3JZ Replacement of Right Lens with Synthetic Substitute, Percutaneous Approach (ICD-10-PCS; principal; 2020-08-15 08:18)
DX: H26.8 Other specified cataract (principal); H21.541 Posterior synechiae (iris), right eye
CPT/HCPCS: J1097

== ENCOUNTER 2020-10-17 07:07 | Day surgery (SDC) | payer OTHER, BC ==
[2020-10-16 15:03] VITALS: BMI 25.8
[2020-10-17] MEDS: CYCLOPENTOLATE 2% OPHTH SOLN 2 ML BOTTLE ONE ×3 (07:45→07:55)
[2020-10-17] MEDS: TROPICAMIDE 1% OPHTH SOLN 15 ML BOTTLE ONE ×3 (07:45→07:55)
[2020-10-17] MEDS: PHENYLEPHRINE 2.5% OPHTH SOLN 15 ML BOTTLE ONE ×3 (07:45→07:55)
[2020-10-17] MEDS: CIPROFLOXACIN 0.3% EYE DROPS 5 ML BOTTLE ONE ×3 (07:45→07:55)
[2020-10-17] MEDS ORDERED: LIDOCAINE 1% P/F 10 MG/ML VIAL ONE (07:54)
[2020-10-17] MEDS ORDERED: TETRACAINE 0.5% OPHTH SOLN 2 ML BOTTLE ONE (07:55)
[2020-10-17] MEDS ORDERED: NEO/POLYMYX B SULF/DEXAMETH OPHTHALMIC 5ML BOTTLE ONE (07:55)
[2020-10-17] MEDS ORDERED: CARBACHOL 0.01% INTRA-OCULAR 1.5 ML VIAL ONE (07:55)
[2020-10-17] MEDS ORDERED: BSS (NA/CA/MG/K) BALANCED SALT SOLUTION OPHTH SOLN 15 ML BOTTLE ONE (07:55)
[2020-10-17] MEDS ORDERED: MIDAZOLAM HCL 2 MG/2 ML SINGLE DOSE VIAL ONE (08:44)
[2020-10-17] MEDS ORDERED: PHENYLEPHRINE/KETOROLAC 4 ML VIAL IO ONE (08:44)
[2020-10-17 09:30] VITALS: PULSE 57; TEMP 98.3
[2020-10-17 09:52] VITALS: BP 121/77
== END 2020-10-17 09:45 | disposition home or self-care (01) ==
LOC: FASU 07:07
PROVIDERS: ATTEND Ophthalmology
PROC: 08ND3ZZ Release Left Iris, Percutaneous Approach (ICD-10-PCS; 2020-10-17)
PROC: 08RK3JZ Replacement of Left Lens with Synthetic Substitute, Percutaneous Approach (ICD-10-PCS; principal; 2020-10-17 08:54)
DX: H26.9 Unspecified cataract (principal); H21.542 Posterior synechiae (iris), left eye
CPT/HCPCS: 65875; 66982; V2631; J1097